=== PATIENT | male | born 1985 | race African-American/Black ===

== ENCOUNTER 2017-11-18 21:37 | Emergency (ER) | payer OTHER ==
[~2017-11-18] VITALS: Ht 175.3 cm; Wt 74.2 kg
[~2017-11-18 21:37] MED LIST: AUGMENTIN875 MG PO; INDOCIN25 MG PO; NOHOMEMEDS; NORCO 5/3251 TABLET PO; PERCOCET 5/31 TABLET PO; PREDNISONE20 MG PO
[2017-11-19 01:48] VITALS: BP 148/60
== END 2017-11-19 01:49 | disposition home or self-care (01) ==
LOC: EME 21:37
PROC: 3E0T3BZ Introduction of Anesthetic Agent into Peripheral Nerves and Plexi, Percutaneous Approach (ICD-10-PCS; principal; 2017-11-18)
DX: S61.012A Laceration without foreign body of left thumb without damage to nail, initial encounter (principal); W26.0XXA Contact with knife, initial encounter; Y99.0 Civilian activity done for income or pay
CPT/HCPCS: 99281; 99284; S0020